=== PATIENT | male | born 1990 | race Caucasian/White ===

== ENCOUNTER 2020-10-07 14:29 | Emergency (ER) | payer OTHER, SELFPAY ==
[2020-10-07 15:30] VITALS: BP 131/94; PULSE 90; RESP 20; TEMP 37.3; O2SAT 98; BMI 34.4
[2020-10-07 15:53] LABS: UTC Strep Screen (Rapid) Positive (Negative)
--- NOTE | 2020-10-07 16:04 | HMH.EDUTC ---
[facility] [place] Disposition Clinical Impression: Strep throat Disposition: Home, Self-Care Condition on Discharge: Good Instructions: DI for Strep Throat, Preventing the Spread of Coronavirus Discharge Instructions Additional Instructions: Drink plenty of fluids. Take tylenol or ibuprofen for pain or fever. Take the medications as directed. Follow up with your regular doctor. GO TO THE ER FOR ANY WORSENING SYMPTOMS Throw your tooth brush away and get a new one. Quarantine until you know the results of your covid-19 test. If it is positive, the health department should call you and give you further instructions about your length of Quarantine and other things. Notify your school or workplace of your results and follow their instructions regarding return to work/school. Prescriptions: Brompheniramine/Pseudoephed/Dm [Bromfed Dm Cough Syrup] 5 ml PO Q6HP PRN #240 syrup PRN Reason: Cough Transmission Status: Received by [facility] Ondansetron [Zofran 4mg ODT] 4 mg PO Q8HP PRN #12 tab.rapdis PRN Reason: Nausea Transmission Status: Received by [facility] Amoxicillin/Potassium Clav [Augmentin 875-125 Tablet] 1 tab PO Q12H 10 Days #20 tab Transmission Status: Received by [facility] Referrals: Raul Thakur MD [Primary Care Provider] - Forms: Work/School Release Time of Disposition: 16:07 Medical Decision Making - Medical Records Medical records reviewed: No: I reviewed the patient's medical records. - Guillermo Inquiry Pt receiving controlled substance: No Vital Signs: 10/07/20 15:30 10/07/20 16:10 Temperature 99.2 F 99.2 F Temperature Source Oral Pulse Rate 90 Pulse Rate [Right Brachial] 90 Respiratory Rate 20 20 Blood Pressure 131/94 H Blood Pressure [Right Arm] 131/94 H Blood Pressure Mean [Right Arm] 106 Blood Pressure Source [Right Arm] Automatic Cuff Blood Pressure Position [Right Arm] Sitting 02 Sat by Pulse Oximetry 98 Oxygen Delivery Method Room Air - Lab Data Lab results reviewed: Yes: I reviewed the patient's lab results. Lab Results 10/07/20 15:44: Strep Scn Rapid Clinic Positive A [facility] [place] HPI - General Stated complaint: muscle pain, headache, sore throat Time Seen by Provider: 10/07/20 16:04 Mode of Arrival: Ambulatory Source of Information: Patient Limitations: No Limitations Description of Symptoms (Recalled from Triage Doc. by RN): PATIENT C/O BODY ACHES, SORE THROAT, VOMITING AND DIARRHEA SINCE YESTERDAY HEENT Symptoms (Recalled from RN notes): Yes Resp Symptoms (Recalled from RN notes): No Skin Symptoms (Recalled from RN notes): No MS Symptoms (Recalled from RN notes): No Functional Status (Recalled from RN notes): WNL - History of Present Illness Provider Complaint: He reports that for the past 3 days he has had fever, chills, sore throat and he has felt very bad. - Related Data Previous Rx's Medication Instructions Recorded Amoxicillin/Potassium Clav 1 tab PO Q12H 10 Days #20 tab 10/07/20 [Augmentin 875-125 Tablet] Brompheniramine/Pseudoephed/Dm 5 ml PO Q6HP PRN #240 syrup 10/07/20 [Bromfed Dm Cough Syrup] Ondansetron [Zofran 4mg ODT] 4 mg PO Q8HP PRN #12 tab.rapdis 10/07/20 Allergies Allergy/AdvReac Type Severity Reaction Status Date / Time No Known Allergies Allergy Verified 12/02/17 20:55 - Worker's Comp Is this a Worker's Comp case?: No [facility] History - Hepatitis A Screen Drug use history?: No High risk sexual behaviors?: No History of sexually transmitted infection?: No Currently employed?: No Childcare worker?: No Do you have indoor plumbing?: Yes Do you have electricity?: Yes Attestation statement:: This patient has been screened for Hepatitis A risk factors. I have reviewed the patient's past medical history: Yes - Social History Alcohol Intake: never ROS Obtained: Yes All systems reviewed & no additional complaints - Constitutional Constitutional: Rep
[2020-10-07 16:10] VITALS: BP 131/94; PULSE 90; RESP 20; TEMP 37.3; O2SAT 98
--- NOTE | 2020-10-08 10:16 | PC.NURSE ---
Attempted to call positive covid results to pt, but no answer. Message left requesting a return call.
--- NOTE | 2020-10-08 10:56 | PC.NURSE ---
relayed positive covid results to pt
== END 2020-10-07 16:17 | disposition home or self-care (01) ==
PROVIDERS: Emergency Provider Nurse Practitioner Family; PCP Family Medicine
DX: J02.0 Streptococcal pharyngitis (principal); U07.1 COVID-19
CPT/HCPCS: 87880; 99203; G0463; U0003

== ENCOUNTER 2020-10-17 01:15 | Emergency (ER) | payer OTHER, SELFPAY ==
[2020-10-17 01:31] VITALS: BP 128/82; PULSE 63; RESP 22; TEMP 37.1; O2SAT 97; BMI 34.2
--- NOTE | 2020-10-17 01:43 | CT_ITS ---
PROCEDURE INFORMATION: Exam: CTA Chest With Contrast Exam date and time: 10/17/2020 1:43 AM Age: 29 years old Clinical indication: Shortness of breath; Additional info: SOA post covid TECHNIQUE: Imaging protocol: Computed tomographic angiography of the chest with contrast. 3D rendering (Not supervised by radiologist): MIP and/or 3D reconstructed images were created by the technologist. Total images: 684 Radiation optimization: All CT scans at this facility use at least one of these dose optimization techniques: automated exposure control; mA and/or kV adjustment per patient size (includes targeted exams where dose is matched to clinical indication); or iterative reconstruction. Contrast material: ISOVUE; Contrast volume: 70 ml; Contrast route: INTRAVENOUS (IV); COMPARISON: CR XR CHEST AP 10/17/2020 2:10 AM FINDINGS: Limitations: Contrast related streak artifact. Pulmonary arteries: Pulmonary artery evaluation of good technical quality with no pulmonary artery embolism identified. Aorta: No thoracic aortic aneurysm, dissection or other acute thoracic aortic injury. Lungs: Patchy subpleural predominant ground-glass and linear pulmonary opacities are concerning for atypical infection, likely moderate changes of COVID-19, potentially in later stage. Pleural spaces: Unremarkable. No pneumothorax. No pleural effusion. Heart: Unremarkable. No cardiomegaly. No pericardial effusion. Lymph nodes: Unremarkable. No enlarged lymph nodes. Liver: Hepatic steatosis is evident. Bones/joints: Unremarkable. No acute fracture. Soft tissues: Unremarkable. IMPRESSION: 1. No thoracic aortic aneurysm, dissection or other acute thoracic aortic injury. 2. No pulmonary artery embolism identified. 3. Patchy subpleural predominant ground-glass and linear pulmonary opacities are concerning for atypical infection, likely moderate changes of COVID-19, potentially in later stage.
--- NOTE | 2020-10-17 01:43 | XR_ITS ---
PROCEDURE INFORMATION: Exam: XR Chest Exam date and time: 10/17/2020 1:43 AM Age: 29 years old Clinical indication: Shortness of breath; Additional info: SOA TECHNIQUE: Imaging protocol: XR of the chest. Views: 4 or more views. Total images: 1 COMPARISON: CR SHOULDCMLT XR shoulder LT min 2V 12/02/2017 8:50 PM FINDINGS: Lungs: Linear and patchy opacities may be atelectasis but have an appearance potentially related to atypical pneumonia, possibly COVID-19. Pleural spaces: Unremarkable. No pleural effusion. No pneumothorax. Heart/Mediastinum: Low lung volumes are present, accentuating cardiac size and pulmonary markings. Bones/joints: Unremarkable. IMPRESSION: 1. Low lung volumes are present, accentuating cardiac size and pulmonary markings. 2. Linear and patchy opacities may be atelectasis but have an appearance potentially related to atypical pneumonia, possibly COVID-19.
[2020-10-17 01:53] LABS: Basophils % 0.8 % (0.1-2.0); Eosinophils # 0.1 K/mm3 (0.0-0.4); Eosinophils % 1.6 % (0.1-12.0); Hematocrit 43.8 % (42.0-52.0); Lymphocytes % 43.1 % (10-50); Mean Corpuscular HGB Conc 34.3 g/dL (31.8-35.4); Mean Corpuscular Volume 87.6 fl (80-94); Mean Platelet Volume 9.5 fl (7.4-10.4); Monocytes # 0.3 K/mm3 (0.1-1.0); Monocytes % 5.4 % (1.7-9.3); Neutrophils # 2.3 K/mm3 (1.8-7.8); Neutrophils % 49.1 % (37.0-80.0); Platelet Count 222 K/mm3 (142-424); Red Cell Distribution Width 13.2 % (11.5-17.5); White Blood Count 4.7 K/mm3 (4.8-10.8)
[2020-10-17 01:57] LABS: Alanine Aminotransferase 114 U/L (12-78); Albumin Level 4.4 g/dl (3.5-5.0); Albumin/Globulin Ratio 1.2 (1.1-1.8); Alkaline Phosphatase 62 U/L (38-126); Aspartate Amino Transferase 149 U/L (17-59); Bilirubin,Total 0.9 mg/dl (0.2-1.3); Blood Urea Nitrogen 11 mg/dl (9-20); Calcium 9.1 mg/dl (8.4-10.2); Carbon Dioxide 31 mmol/L (22.0-30.0); Chloride 102 mmol/L (98-107); Creatinine Clearance Estimated 156 mL/min (50-200); Estimated Glomerular Filt Rate 79 ml/min (>60); GFR (African American) 96 ML/MIN (>60); Globulin 3.8 g/dL (1.3-3.2); Glucose 101 mg/dl (74-100); Sodium 145 mmol/L (136-145); Total Protein,Serum 8.2 g/dl (6.3-8.2)
[2020-10-17 02:02] LABS: C-Reactive Protein 42.6 mg/L (0-4)
[2020-10-17 02:15] LABS: Erythrocyte Sedimentation Rate 26 mm/hr (0-15)
[2020-10-17 02:16] LABS: Procalcitonin 0.096 ng/mL (0.0-2.0)
--- NOTE | 2020-10-17 03:33 | HMH.EDSOB ---
ED Disposition Clinical Impression: COVID-19, COVID-19 with pulmonary comorbidity Disposition: Home, Self-Care Condition on Discharge: Good Instructions: DI for COVID-19 (Suspected or Confirmed ) Additional Instructions: use meds and call pcp for follow up Prescriptions: predniSONE [Prednisone 20mg Tab] 20 mg PO BID #10 tab Transmission Status: Pending to [facility] Ketorolac Tromethamine [Toradol 10mg tablet] 10 mg PO Q6HP PRN #8 tab MDD 40mg/day PRN Reason: Moderate To Severe Pain Transmission Status: Pending to [facility] Referrals: Raul Thakur MD [Primary Care Provider] - - Critical Care Critical Care Time: No Attestation: On 10/17/20, the high probability of a clinically significant, sudden or life threatening deterioration of the following system(s) required my full and direct attention, intervention and personal management. The time I documented below is in addition to time spent performing reported procedures but includes the following listed in this critical care notation. Medical Decision Making - Medical Records Medical records reviewed: Yes: I reviewed the patient's medical records. - Guillermo Inquiry Pt receiving controlled substance: No Vital Signs: 10/17/20 01:31 Temperature 98.7 F Temperature Source Oral Pulse Rate [Right] 63 Respiratory Rate 22 Blood Pressure [Left Arm] 128/82 Blood Pressure Mean [Left Arm] 97 Blood Pressure Source [Left Arm] Manual Cuff/ Auscultation Blood Pressure Position [Left Arm] Sitting 02 Sat by Pulse Oximetry 97 Oxygen Delivery Method Room Air - Lab Data Lab results reviewed: Yes: I reviewed the patient's lab results. Lab Results 10/17/20 01:25: WBC 4.7 L, RBC 5.00, Hgb 15.0, Hct 43.8, MCV 87.6, MCH 30.0, MCHC 34.3, RDW 13.2, Plt Count 222, MPV 9.5, Neut % (Auto) 49.1, Lymph % (Auto) 43.1, [place] % (Auto) 5.4, Eos % (Auto) 1.6, Baso % (Auto) 0.8, Neut # (Auto) 2.3, Lymph # (Auto) 2.0, [place] # (Auto) 0.3, Eos # (Auto) 0.1, Baso # (Auto) 0.0, ESR 26 H 10/17/20 01:25: Sodium 145, Potassium 4.0, Chloride 102, Carbon Dioxide 31 H, Anion Gap 16.0 H, BUN 11, Creatinine 1.10, Estimated Creat Clear 156, Estimated GFR 79, Est GFR ( Amer) 96, Glucose 101 H, Calcium 9.1, Total Bilirubin 0.9, AST 149 H, ALT 114 H, Alkaline Phosphatase 62, C-Reactive Protein 42.6 H, Total Protein 8.2, Albumin 4.4, Globulin 3.8 H, Albumin/Globulin Ratio 1.2, Procalcitonin 0.096 Result diagrams: 10/17/20 01:25 10/17/20 01:25 Orders (Tests/Meds): ED MEDICATIONS Generic Name Dose Route Start Last Admin Trade Name Freq PRN Reason Stop Dose Admin Sodium Chloride 1,000 mls @ 999 mls/hr 10/17/20 01:45 10/17/20 01:58 Sod Chlor 0.9% 1000ml Bag IV 10/17/20 02:45 999 mls/hr .Q1H1M WICHO Administration Discontinued Medications Generic Name Dose Route Start Last Admin Trade Name Freq PRN Reason Stop Dose Admin Iopamidol 70 ml 10/17/20 02:33 10/17/20 02:34 Iopamidol-370 (76%);100ml Bottle IV 10/17/20 02:34 70 ml ONCE ONE Administration Ketorolac Tromethamine 30 mg 10/17/20 01:43 10/17/20 01:58 Ketorolac 30mg/Ml Vial IV 10/17/20 01:44 30 mg ONCE ONE Administration Methylprednisolone Sodium Succinate 125 mg 10/17/20 01:43 10/17/20 01:58 Methylprednisolone Sod Succ 125mg Vial IV 10/17/20 01:44 125 mg ONCE ONE Administration Sodium Chloride 50 ml 10/17/20 02:33 10/17/20 02:33 0.9 % Sodium Chloride 50 Ml Vial IV 10/17/20 02:34 50 ml ONCE ONE Administration Sodium Chloride 10 ml 10/17/20 02:33 10/17/20 02:34 Sodium Chloride 0.9% 10ml Syr (Rad Only) IV 10/17/20 02:34 10 ml ONCE ONE Administration - Radiology Data #1 Image(s): Chest Image Reviewed: Yes I have reviewed radiologist's interpretation Preliminary Findings: Abnormal - CT Data CT Scan: Chest Time Received: 03:[address] Reviewed: Yes: I have viewed the radiologist's interpretation Preliminary Findings:
[2020-10-17 03:52] VITALS: BP 119/74; PULSE 71; RESP 20; TEMP 37.1; O2SAT 99
== END 2020-10-17 03:56 | disposition home or self-care (01) ==
PROVIDERS: Emergency Provider Emergency Medicine; PCP Family Medicine
DX: U07.1 COVID-19 (principal); J12.82 Pneumonia due to coronavirus disease 2019; R05 Cough
CPT/HCPCS: 71045; 71275; 80053; 84145; 85025; 85651; 86140; 96365; 96375; 99282; Q9967